=== PATIENT | female | born 1990 | race Two or more races ===

== ENCOUNTER → 2017-08-21 | Emergency (ER) | payer OTHER ==
[~2017-08-21] VITALS: Ht 154.9 cm; Wt 46.7 kg
[~2017-08-21] MED LIST: MACROBID 100 M100 MG PO; PHENERGAN25 MG PO; PRENATAL DHA200 MG; PRENATAL TABLE1 EAC1 PO; ULTRACET PO
== END | disposition home or self-care (01) ==
LOC: ER 05:57
DX: B34.9 Viral infection, unspecified (principal); K29.70 Gastritis, unspecified, without bleeding; E86.0 Dehydration

== ENCOUNTER 2017-09-25 09:34 | Outpatient (CLI) | payer OTHER | END 2017-09-25 09:54 | disposition home or self-care (01) | LOC: LAB 09:34 | DX: D69.49 Other primary thrombocytopenia (principal); E06.3 Autoimmune thyroiditis; D51.1 Vitamin B12 deficiency anemia due to selective vitamin B12 malabsorption with proteinuria; D50.8 Other iron deficiency anemias; D51.8 Other vitamin B12 deficiency anemias; I10 Essential (primary) hypertension; D55.0 Anemia due to glucose-6-phosphate dehydrogenase [G6PD] deficiency; D51.0 Vitamin B12 deficiency anemia due to intrinsic factor deficiency; E03.8 Other specified hypothyroidism; E11.9 Type 2 diabetes mellitus without complications ==